=== PATIENT | female | born 1980 | race Caucasian/White ===

== ENCOUNTER → 2019-05-08 08:54 | Outpatient (CLI) | payer OTHER, MEDICAID, SELFPAY ==
--- NOTE | 2019-05-08 | DI.US.S_ITS ---
PROCEDURE: US OB >= 14 WEEKS FETUS INDICATIONS: ANATOMIC SURVEY OUTSIDE/PRIOR DATING DATA: Last menstrual period (LMP): 12/18/18. LMP-based estimated date of delivery (NAV): 09/24/19. First dating scan (date and location): 05/08/19. Estimated date of delivery (NAV) from first dating scan: 09/10/19. TECHNIQUE: Real-time scanning was performed of the fetus, with image documentation and biometric measurements. Endovaginal scanning: Not performed COMPARISON: None. FINDINGS: General: A single living intrauterine gestation is present. Presentation: Variable. Placenta: Placental position is anterior, without previa. Amniotic fluid index: 15.7 cm, normal range is 5-24 cm. largest vertical fluid pocket measured 4.2 cm heart rate: 150 beats per minute. Maternal cervical canal: 3.7 cm long. Normal lower limit is 2.5 cm. biometrics: Biparietal diameter: 5.2 cm, correlating with 21 weeks and 5 days Head circumference: 19.7 cm, correlating with 21 weeks and 6 days Abdominal circumference: 17.0 cm, correlating with 22 weeks and 0 days Femur length: 3.8 cm, correlating with 22 weeks and 2 days Estimated gestational age from initial scan: not applicable. Composite gestational age from present scan: 22 weeks and 1 day. Estimated weight and percentile: 473 g Anatomic survey: Neuro: Ventricles are non-dilated less than 10 mm. Cisterna magna is normal at 3-11 mm. Cerebellum is normal in size and morphology. Nuchal skin fold: Normal at less than 6 mm between 14-21 weeks gestational age. Face: Nose and lips, facial profile are normal. Spine: No evidence for spina bifida. Heart: 4-chambered heart is present, with normal ventricular outflow tracts. Diaphragm: Diaphragm is intact. Stomach: Left-sided stomach is present. Kidneys: No hydronephrosis. Normal is less than 5 mm in 2nd trimester, less than 7 mm in 3rd trimester. Cord: 3-vessel cord has orthotopic insertion. Bladder: Normal in size. Extremities: All 4 extremities identified. IMPRESSION: 1. Single living intrauterine gestation with an estimated sonographic gestational age of approximately 22 weeks and 1 day and estimated delivery date of 09/10/19 versus estimated delivery date of 09/24/19 based off last menstrual period. There is a 14-day discrepancy between sonographic dating and clinical dating. Of note, no early dating ultrasound was performed. (Measurement variability for biometric dating: +/- 7 days from 14 weeks to 15 weeks 6 days gestation, +/- 10 days from 16 weeks to 21 weeks 6 days gestation, +/- 2 weeks from 22 weeks to 27 weeks 6 days gestation, +/- 3 weeks for 28 weeks gestation or later.) 2. Normal anatomic screening survey as imaged on today's evaluation. Dictated by: Gage Anderson M.D. on 05/08/2019 at 18:35 Approved by: Gage Anderson M.D. on 05/08/2019 at 18:45
== END ==
PROVIDERS: Visit Provider Midwife
DX: Z36.89 Encounter for other specified antenatal screening (principal); Z3A.22 22 weeks gestation of pregnancy
CPT/HCPCS: 76811